=== PATIENT | male | born 1960 | race Two or more races ===

== ENCOUNTER 2018-03-22 14:25 | Outpatient (CLI) | payer OTHER ==
[~2018-03-22 14:25] MED LIST: ACET-2144 PO; ALBU18HF2 IH; AMLO2.5T2 PO; AMOX-580 PO; LIDO40SO4 PO; [UNRECOGNIZED DRUG - OTHER] PO
== END 2018-03-22 23:59 | disposition home or self-care (01) ==
LOC: RAD 14:25
DX: Z11.1 Encounter for screening for respiratory tuberculosis (principal); I10 Essential (primary) hypertension
CPT/HCPCS: 71045

== ENCOUNTER 2023-04-29 10:43 | Inpatient (IN) | payer MEDICAID, OTHER ==
[~2023-04-29] VITALS: Ht 167.6 cm; Wt 84.5 kg
[~2023-04-29 10:43] MED LIST changes: -ACET-2144 PO; +ACET-3209 PO
[2023-04-29 11:14] LABS: BASOPHILS % (AUTO) 0.4 % (0-1); EOSINOPHILS # (AUTO) 0.3 X10'3 (0-0.9); EOSINOPHILS % (AUTO) 3.1 % (0-6); HEMATOCRIT 47.2 % (42.0-52.0); HEMOGLOBIN 16.2 g/dl (14.0-17.9); LYMPHOCYTES # (AUTO) 2.6 X10'3 (1.1-4.8); LYMPHOCYTES % (AUTO) 24.5 % (21-51); MEAN CORPUSCULAR HEMOGLOBIN 31.7 PG (27.0-31.0); MEAN CORPUSCULAR HGB CONC 34.4 g/dL (33.0-36.5); MEAN CORPUSCULAR VOLUME 92.2 FL (78-98); MEAN PLATELET VOLUME 7.6 FL (7.4-10.4); MONOCYTES # (AUTO) 0.7 X10'3 (0-0.9); MONOCYTES % (AUTO) 6.3 % (2-12); NEUTROPHILS # (AUTO) 6.9 X10'3 (1.8-7.7); NEUTROPHILS % (AUTO) 65.7 % (42-75); PLATELET COUNT 213 X10'3 (140-440); RED BLOOD COUNT 5.12 X10'6 (4.70-6.10); RED CELL DISTRIBUTION WIDTH 13.4 % (11.5-14.5); WHITE BLOOD COUNT 10.5 X10'3 (4.5-11.0)
[2023-04-29 11:55] LABS: ALBUMIN 3.9 G/DL (3.4-5.0); ANION GAP 8 (8-16); BLOOD UREA NITROGEN 12 MG/DL (7-18); BUN/CREATININE RATIO 12.5 (10.0-20.0); CALCIUM 8.1 MG/DL (8.5-10.1); CHLORIDE 107 MMOL/L (99-107); CREATININE 0.96 MG/DL (0.60-1.10); GLUCOSE 113 MG/DL (70-104); POTASSIUM 3.8 MMOL/L (3.5-5.1); PRO BRAIN NATRIURETIC PEPTIDE < 30 PG/ML (0-125); SODIUM 142 MMOL/L (135-145); eCRCL 73 ML/MIN; eGFR 80 ML/MIN
[2023-04-29 13:18] LABS: EOSINOPHILS # (AUTO) 0.3 X10'3 (0-0.9); HEMATOCRIT 47.5 % (42.0-52.0); HEMOGLOBIN 16.5 g/dl (14.0-17.9); MEAN CORPUSCULAR HGB CONC 34.8 g/dL (33.0-36.5); RED CELL DISTRIBUTION WIDTH 13.3 % (11.5-14.5)
[2023-04-29 13:19] LABS: BASOPHILS % (AUTO) 0.4 % (0-1); EOSINOPHILS % (AUTO) 3.1 % (0-6); LYMPHOCYTES # (AUTO) 2.1 X10'3 (1.1-4.8); MEAN CORPUSCULAR VOLUME 91.9 FL (78-98); MONOCYTES # (AUTO) 0.7 X10'3 (0-0.9); MONOCYTES % (AUTO) 6.9 % (2-12); NEUTROPHILS # (AUTO) 6.8 X10'3 (1.8-7.7); NEUTROPHILS % (AUTO) 68.6 % (42-75); PLATELET COUNT 229 X10'3 (140-440); RED BLOOD COUNT 5.17 X10'6 (4.70-6.10); WHITE BLOOD COUNT 9.9 X10'3 (4.5-11.0)
[2023-04-29] MEDS: aspirin 325mg tablet PO ONE (14:36)
[2023-04-29 14:48] LABS: BILIRUBIN,URINE NEGATIVE (Neg); CLARITY,URINE CLEAR (Clear); COLOR,URINE YELLOW (Yellow); GLUCOSE, URINE NEGATIVE (Neg); KETONES,URINE NEGATIVE (Neg); LEUKOCYTE ESTERASE ,URINE NEGATIVE (Neg); NITRITES, URINE NEGATIVE (Neg); OCCULT BLOOD,URINE TRACE-INTACT (Neg); PROTEIN,URINE NEGATIVE (Neg); UROBILINOGEN,URINE 0.2 E.U/dL (0.2-1.0)
[2023-04-29 14:53] LABS: BACTERIA,URINE NONE SEEN /HPF (Neg); MUCUS STRANDS NONE SEEN /LPF (Neg); RBC,URINE 0-2 /HPF (0-2); SQUAMOUS EPITHELIAL CELL,UR NONE SEEN /LPF (FEW); UA COLLECTION TYPE VOIDED; WBC,URINE NONE SEEN /HPF (0-4)
[2023-04-29] MEDS ORDERED: ATOR40TA PO (18:39)
[2023-04-29] MEDS ORDERED: FINA5TAB11 PO (18:39)
[2023-04-29] MEDS ORDERED: LOSA-416 PO (18:39)
[2023-04-29] MEDS ORDERED: SOLI5TAB2 CORPAK (18:39)
[2023-04-29] MEDS ORDERED: FLO0.4C PO (18:39)
[2023-04-29 19:18] LABS: D-DIMER 0.22 MG/L FEU (0-0.50)
[2023-04-29] MEDS ORDERED: magnesium hydroxide 30ml (MOM) UD suspension PO PRN (21:15)
[2023-04-29] MEDS ORDERED: magnesium 4gm in 100ml NS 100 ML IV PRN (21:15)
[2023-04-29] MEDS ORDERED: morphine 2 MG/ML inj. syringe IV PRN ×2 (21:15)
[2023-04-29] MEDS ORDERED: magnesium 2GM in 50ml NS 50 ML IV PRN (21:15)
[2023-04-29] MEDS ORDERED: magnesium Cl slow-release 64mg tablet PO PRN (21:15)
[2023-04-29] MEDS ORDERED: HYDROcodone/acetaminophen 10/325mg tab PO PRN (21:15)
[2023-04-29] MEDS ORDERED: potassium Cl 40MEQ/1/2NS 520ml 520 ML IV PRN (21:15)
[2023-04-29] MEDS ORDERED: metoprolol tartrate 1mg/ml inj IV PRN (21:15)
[2023-04-29] MEDS ORDERED: potassium Cl 20 mEq SR tablet PO PRN ×2 (21:15)
[2023-04-29] MEDS ORDERED: mag hydrox/Alum hydrox/simeth 30ml oral suspension PO PRN (21:15)
[2023-04-29] MEDS ORDERED: HYDROcodone/acetaminophen 5mg/325mg tablet PO PRN (21:15)
[2023-04-29] MEDS ORDERED: nitroGLYCERIN 0.4mg SUBLingual tab SL PRN (21:15)
[2023-04-29] MEDS ORDERED: aminophylline 250mg/10ml inj. IV PRN (21:15)
[2023-04-29] MEDS ORDERED: ondansetron/PF 4mg/2ml inj IV PRN (21:15)
[2023-04-29] MEDS ORDERED: acetaminophen 325mg tablet PO PRN (21:15)
[2023-04-29] MEDS: nitroGLYCERIN 0.2mg/hour patch TD ONE (21:42)
[2023-04-29] MEDS: pantoprazole 40 MG vial IV SCH (21:43)
[2023-04-29] MEDS: amLODIPine 5mg tablet PO SCH (21:43)
[2023-04-30] VITALS (13 sets, daily range): BP systolic 104–142; BP diastolic 67–94; PULSE 62–92; RESP 16–26; TEMP 97.4–98.3; O2SAT 96–99
[2023-04-30 06:46] LABS: BASOPHILS % (AUTO) 0.3 % (0-1); EOSINOPHILS # (AUTO) 0.4 X10'3 (0-0.9); EOSINOPHILS % (AUTO) 4.1 % (0-6); HEMOGLOBIN 15.4 g/dl (14.0-17.9); LYMPHOCYTES # (AUTO) 1.9 X10'3 (1.1-4.8); LYMPHOCYTES % (AUTO) 20.6 % (21-51); MEAN CORPUSCULAR HEMOGLOBIN 31.9 PG (27.0-31.0); MEAN CORPUSCULAR VOLUME 91.1 FL (78-98); MEAN PLATELET VOLUME 7.7 FL (7.4-10.4); MONOCYTES # (AUTO) 0.6 X10'3 (0-0.9); MONOCYTES % (AUTO) 6.8 % (2-12); NEUTROPHILS # (AUTO) 6.3 X10'3 (1.8-7.7); NEUTROPHILS % (AUTO) 68.2 % (42-75); PLATELET COUNT 216 X10'3 (140-440); RED BLOOD COUNT 4.83 X10'6 (4.70-6.10); WHITE BLOOD COUNT 9.3 X10'3 (4.5-11.0)
[2023-04-30 06:58] LABS: APTT 29 SECONDS (22-32); PROTHROMBIN TIME 10.9 SECONDS (9.0-12.0)
[2023-04-30 07:26] LABS: ALANINE AMINOTRANSFERASE 30 U/L (12-78); ALBUMIN 3.3 G/DL (3.4-5.0); ALKALINE PHOSPHATASE 74 IU/L (46-116); ANION GAP 10 (8-16); ASPARTATE AMINO TRANSFERASE 16 U/L (10-37); BILIRUBIN,TOTAL 0.9 MG/DL (0.1-1.0); BLOOD UREA NITROGEN 13 MG/DL (7-18); BUN/CREATININE RATIO 13.8 (10.0-20.0); CALCIUM 7.9 MG/DL (8.5-10.1); CHLORIDE 109 MMOL/L (99-107); CHOLESTEROL 168 MG/DL (0-200); CREATININE 0.94 MG/DL (0.60-1.10); GLUCOSE 109 MG/DL (70-104); HDL CHOLESTEROL 42 MG/DL (35-60); LDL CHOLESTEROL 102 MG/DL (50-100); MAGNESIUM 2.3 MG/DL (1.5-2.4); PHOSPHORUS 3.1 MG/DL (2.3-4.5); POTASSIUM 4.1 MMOL/L (3.5-5.1); SODIUM 143 MMOL/L (135-145); TOTAL CARBON DIOXIDE 24.4 MMOL/L (24-32); TOTAL PROTEIN 6.7 G/DL (6.4-8.2); TRIGLYCERIDES 137 MG/DL (20-135); eCRCL 74 ML/MIN; eGFR 82 ML/MIN
[2023-04-30] MEDS: K and/or MAG REPLACEMENT MC SCH (08:00)
[2023-04-30 08:35] LABS: HEMOGLOBIN A1C 5.5 % (4.5-6.2)
[2023-04-30] MEDS: acetaminophen 325mg tablet PO PRN (08:43)
[2023-04-30] MEDS: enoxaparin 40mg/0.4ml syringe SUBCUT SCH (08:44)
[2023-04-30 09:24] LABS: H PYLORI ANTIBODY NEGATIVE (Neg)
[2023-04-30] MEDS: regadenoson 0.4mg/5ml syringe IV PRN (11:06)
[2023-04-30] MEDS ORDERED: LORA10TA7 PO (11:16)
[2023-04-30] MEDS ORDERED: RIFA150T2 PO (11:16)
[2023-04-30] MEDS ORDERED: ISON300T21 PO (11:16)
[2023-04-30] MEDS: losartan 50mg tablet PO SCH (13:03)
[2023-04-30] MEDS ORDERED: PANT40TA54 PO (17:10)
[2023-04-30] MEDS ORDERED: ATOR80TA PO (17:10)
[2023-05-01] MEDS ORDERED: pantoprazole 40mg Tablet.DR PO SCH (07:30)
== END 2023-04-30 17:30 | disposition home or self-care (01) | DRG 199 ==
LOC: ER 10:44 → ED HOLD 21:14 → PCU 3S 04-30 05:45
PROVIDERS: ADMIT Family Medicine; ATTEND Internal Medicine
DX: I16.0 Hypertensive urgency (principal); F41.9 Anxiety disorder, unspecified; H66.92 Otitis media, unspecified, left ear; I10 Essential (primary) hypertension; Z79.899 Other long term (current) drug therapy; Z82.49 Family history of ischemic heart disease and other diseases of the circulatory system; Z86.15 Personal history of latent tuberculosis infection
CPT/HCPCS: 36415; 70450; 71045; 78452; 80048; 80053; 80061; 81001; 83036; 83735; 83880; 84100; 84484; 85025; 85379; 85610; 85730; 86677; 87081; 93005; 93017; 99285; A9500; C9113; G0378; J1650; J2785